=== PATIENT | female | born 1990 | race Caucasian/White ===

== ENCOUNTER 2016-09-16 17:49 | Emergency (ER) | payer MEDICAID ==
[~2016-09-16] VITALS: Ht 160 cm; Wt 76.5 kg
[2016-09-16 17:53] VITALS: BP 123/82
[2016-09-16 18:56] LABS: ASPARTATE AMINO TRANSFERASE 24 U/L (15-37); BLOOD UREA NITROGEN 8 mg/dL (7-18)
[2016-09-16] MEDS ORDERED: METR500T PO (19:20)
[2016-09-16] MEDS ORDERED: SERT100T PO (19:20)
[2016-09-16] MEDS ORDERED: LEVO50TA PO (19:20)
[2016-09-16] MEDS ORDERED: LORA-445 PO (19:20)
== END 2016-09-16 21:47 | disposition home or self-care (01) ==
LOC: ED 21:00
DX: N83.02 Follicular cyst of left ovary (principal); N92.0 Excessive and frequent menstruation with regular cycle
CPT/HCPCS: 36415; 76830; 80053; 81001; 83690; 84703; 85025; 99285

== ENCOUNTER 2017-06-07 19:50 | Emergency (ER) | payer MEDICAID ==
[~2017-06-07] VITALS: Ht 160 cm; Wt 66.4 kg
[~2017-06-07 19:50] MED LIST: LEVO50TA PO; LORA-445 PO; METR500T PO; SERT100T PO
[2017-06-07 19:52] VITALS: BP 99/64
== END 2017-06-07 21:58 | disposition home or self-care (01) ==
LOC: ED 20:15
DX: N61.0 Mastitis without abscess (principal); Z90.49 Acquired absence of other specified parts of digestive tract
CPT/HCPCS: 76642; 99284

== ENCOUNTER 2018-08-20 17:39 | Emergency (ER) | payer MEDICAID ==
[~2018-08-20] VITALS: Ht 160 cm; Wt 71.4 kg
[2018-08-20 18:16] LABS: MEAN CORPUSCULAR HEMOGLOBIN 29.4 pg (27.0-34.8); MEAN CORPUSCULAR HGB CONC 33.7 g/dL (32.4-35.8); MEAN CORPUSCULAR VOLUME 87.3 fL (80-100); PLATELET COUNT 333 x10^3/uL (130-400); RED CELL DISTRIBUTION WIDTH 13.8 % (9.6-15.2)
[2018-08-20 18:27] LABS: ALBUMIN 4.3 g/dL (3.4-5.0); ANION GAP 7 mmol/L (5-15); CHLORIDE 104 mmol/L (98-107)
[2018-08-20 18:28] LABS: CREATININE 0.61 mg/dL (0.55-1.02)
[2018-08-20] MEDS ORDERED: CEFTRIAXONE PMX 2GM/50ML 50 ML IV ONE (18:30)
[2018-08-20] MEDS ORDERED: SODIUM CHLORIDE FLUSH 10ML SYR IVF ONE (18:30)
[2018-08-20] MEDS ORDERED: SODIUM CHLORIDE 0.9% 1,000ML IVBOLUS ONE (18:30)
[2018-08-20] MEDS ORDERED: ACETAMINOPHEN 325 MG TABLET PO ONE (18:30)
[2018-08-20 18:41] LABS: CULTURE INDICATED? YES; HCG UR SG 1.009 (1.003-1.030); MICROSCOPIC INDICATED
[2018-08-20] MEDS ORDERED: IBUPROFEN 600 MG TABLET ONE (18:49)
[2018-08-20] MEDS ORDERED: CEFTRIAXONE PMX 2GM/50ML 50 ML ONE (18:49)
[2018-08-20] MEDS ORDERED: IBUPROFEN 200 MG TABLET PO ONE (19:00)
[2018-08-20] MEDS ORDERED: IBUPROFEN 600 MG TABLET PO ONE (19:00)
--- NOTE | 2018-08-20 19:10 | NUR ---
Pt presents for 4 days of painful urination, increased frequency. R flank pain today. Fever. VSS.
[2018-08-20 19:20] LABS: BASOPHILS # (AUTO) 0.01 x10^3/uL (0-0.1); BASOPHILS % (AUTO) 0 % (0-1); EOSINOPHILS # (AUTO) 0.02 x10^3/uL (0-0.4); EOSINOPHILS % (AUTO) 0 % (1-7); LYMPHOCYTES # (AUTO) 1.04 x10^3/uL (1-3.4); LYMPHOCYTES % (AUTO) 5 % (22-44); MD SCAN; MONOCYTES # (AUTO) 0.62 x10^3/uL (0.2-0.8); MONOCYTES % (AUTO) 3 % (2-9); NEUTROPHILS # (AUTO) 17.67 x10^3/uL (1.8-6.8); NEUTROPHILS % (AUTO) 91 % (42-75)
[2018-08-20 19:54] VITALS: BP 115/65
[2018-08-21] MEDS ORDERED: ACYC-113 PO (22:14)
== END 2018-08-20 20:16 | disposition home or self-care (01) ==
LOC: ED 19:55
DX: N10 Acute pyelonephritis (principal); E03.9 Hypothyroidism, unspecified
CPT/HCPCS: 36415; 80048; 81001; 81025; 82040; 85025; 87077; 87086; 87147; 87186; 96365; 99283; J0696; J7030

== ENCOUNTER 2018-08-21 19:30 | Inpatient (IN) | payer MEDICAID ==
[~2018-08-21] VITALS: Ht 160 cm; Wt 78.8 kg
--- NOTE | 2018-08-21 20:21 | NUR ---
FIRST CONTACT WITH PT. PT STATES THAT SHE WAS SEEN HERE YESTERDAY FOR KIDNEY INFECTION. PT STATES THAT SHE IS HAVING EXCRUCIATING PAIN THAT RADIATES TO HER ABDOMEN NOW. PT BEEN COMPLIANT WITH PRESCRIBED MEDS SINCE D/C. PT'S AOX4. RESPS EVEN AND UNLABORED. BP/SPO2 MONITORS IN PLACE. CALL LIGHT WITHIN REACH. AWAITING EDMD ASSESSMENT AT THIS TIME.
--- NOTE | 2018-08-21 20:46 | NUR ---
PT AMB TO BR AND BACK TO ROOM WITH STEADY GAIT.
[2018-08-21] MEDS ORDERED: SODIUM CHLORIDE FLUSH 10ML SYR IVF ONE (21:00)
[2018-08-21] MEDS ORDERED: ONDANSETRON 2MG/ML, 2ML IVPush ONE (21:00)
[2018-08-21] MEDS ORDERED: MORPHINE SULFATE 4 MG/ML, 1ML ONE ×2 (21:02→22:19)
[2018-08-21] MEDS ORDERED: ONDANSETRON 2MG/ML, 2ML ONE (21:02)
--- NOTE | 2018-08-21 21:05 | NUR ---
UA SENT. PT IN CT NOW.
--- NOTE | 2018-08-21 21:09 | NUR ---
PT BACK TO ROOM FROM CT NOW.
[2018-08-21 21:11] LABS: MICROSCOPIC INDICATED
[2018-08-21] MEDS: MORPHINE SULFATE 4 MG/ML, 1ML IVPush PRN ×2 (21:21→22:21)
[2018-08-21 21:25] LABS: CULTURE INDICATED? NO
--- NOTE | 2018-08-21 21:25 | NUR ---
PT MEDICATED PER EMAR. PT TOLERTAED WELL.
[2018-08-21 21:39] LABS: MEAN CORPUSCULAR HEMOGLOBIN 30.2 pg (27.0-34.8); MEAN CORPUSCULAR HGB CONC 34.6 g/dL (32.4-35.8); MEAN CORPUSCULAR VOLUME 87.3 fL (80-100); MEAN PLATELET VOLUME 8.5 fL (7.4-10.4); PLATELET COUNT 306 x10^3/uL (130-400)
[2018-08-21 21:48] LABS: ALANINE AMINOTRANSFERASE 35 U/L (12-78); ALBUMIN 3.3 g/dL (3.4-5.0); ANION GAP 8 mmol/L (5-15); CALCIUM 8.7 mg/dL (8.5-10.1); CHLORIDE 108 mmol/L (98-107); CREATININE 0.68 mg/dL (0.55-1.02)
[2018-08-21 21:51] LABS: ALKALINE PHOSPHATASE 94 U/L (45-117)
--- NOTE | 2018-08-21 21:57 | NUR ---
PT IN US NOW.
[2018-08-21 22:04] LABS: BASOPHILS # (AUTO) 0.03 x10^3/uL (0-0.1); BASOPHILS % (AUTO) 0 % (0-1); EOSINOPHILS # (AUTO) 0.01 x10^3/uL (0-0.4); EOSINOPHILS % (AUTO) 0 % (1-7); LYMPHOCYTES # (AUTO) 1.78 x10^3/uL (1-3.4); LYMPHOCYTES % (AUTO) 6 % (22-44); MD SCAN; MONOCYTES # (AUTO) 1.29 x10^3/uL (0.2-0.8); MONOCYTES % (AUTO) 5 % (2-9); NEUTROPHILS # (AUTO) 25.02 x10^3/uL (1.8-6.8); NEUTROPHILS % (AUTO) 89 % (42-75)
[2018-08-21] MEDS ORDERED: ACYC-113 PO (22:14)
[2018-08-21] MEDS ORDERED: CEFTRIAXONE PMX 1GM/50ML 50 ML ONE (22:18)
--- NOTE | 2018-08-21 22:20 | NUR ---
PT BACK TO ROOM FROM US.
--- NOTE | 2018-08-21 22:29 | NUR ---
PT MEDICATED PER EMAR. PT TOLERATED WELL. PT'S AOX4. RESPS EVEN AND UNLABORED.
[2018-08-21] MEDS ORDERED: CEFTRIAXONE PMX 1GM/50ML 50 ML IVPB ONE (22:30)
[2018-08-21] MEDS ORDERED: SODIUM CHLORIDE 0.9% 1,000ML IVBOLUS ONE (22:30)
--- NOTE | 2018-08-21 22:36 | NUR ---
REPORT GIVEN TO HERACLIO LESTER. ALL QUESTIONS ANSWERED.
[2018-08-21] MEDS: NS + 20MEQ KCL 1,000 ML IV SCH (22:47)
--- NOTE | 2018-08-21 22:51 | NUR ---
PT'S PAIN LEVEL REDUCED TO 5/10 AT THIS TIME.
[2018-08-21] MEDS ORDERED: ENALAPRILAT 1.25 MG/ML, 2ML IVPush PRN (23:00)
[2018-08-21] MEDS ORDERED: POTASSIUM CHLORIDE 20 MEQ TAB.ER.PRT PO ONE (23:00)
[2018-08-21] MEDS ORDERED: ENOXAPARIN 40 MG/0.4 ML SQ SCH (23:00)
[2018-08-21] MEDS ORDERED: morphine SULFATE 10 MG/ML, 1ML IVPush PRN (23:00)
[2018-08-21] MEDS: HYDROcodone/APAP 5/325 TABLET PO PRN (23:28)
[2018-08-21 23:33] VITALS: BP 114/73
[2018-08-22] MEDS ORDERED: ONDANSETRON 2MG/ML, 2ML IVPush ONE (00:30)
[2018-08-22 03:20] VITALS: BP 102/67
[2018-08-22] MEDS: HYDROcodone/APAP 5/325 TABLET PO PRN ×2 (03:48→08:12)
[2018-08-22] MEDS: ONDANSETRON 2MG/ML, 2ML IVPush PRN ×3 (03:48→21:23)
[2018-08-22] MEDS: NS + 20MEQ KCL 1,000 ML IV SCH ×3 (05:17→23:29)
[2018-08-22] MEDS: LEVOTHYROXINE 50 MCG TABLET PO SCH (05:19)
[2018-08-22 05:36] LABS: MEAN CORPUSCULAR HEMOGLOBIN 29.8 pg (27.0-34.8); MEAN CORPUSCULAR HGB CONC 33.9 g/dL (32.4-35.8); MEAN PLATELET VOLUME 8.6 fL (7.4-10.4); PLATELET COUNT 279 x10^3/uL (130-400); RED BLOOD COUNT 3.92 x10^6/uL (3.82-5.3); RED CELL DISTRIBUTION WIDTH 14.1 % (9.6-15.2)
[2018-08-22 05:43] LABS: ANION GAP 5 mmol/L (5-15); CALCIUM 8.4 mg/dL (8.5-10.1); CHLORIDE 112 mmol/L (98-107); CREATININE 0.58 mg/dL (0.55-1.02)
[2018-08-22 05:52] LABS: RAPID INFLUENZA A Negative (Negative); RAPID INFLUENZA B Negative (Negative)
[2018-08-22 05:53] LABS: THYROID STIMULATING HORMONE 0.871 mIU/L (0.358-3.740)
[2018-08-22 06:13] LABS: HEMOGLOBIN A1C 5.5 % (4.2-6.3)
[2018-08-22 07:24] LABS: MD YES
[2018-08-22 07:26] LABS: BAND#(MANUAL) 3.44 x10^3/uL; BANDS%(MANUAL) 15 % (0-7); LYMPH#(MANUAL) 0.92 x10^3/uL (1-3.4); LYMPHS% (MANUAL) 4 % (22-44); MONOS#(MANUAL) 0.46 x10^3/uL (0.3-2.7); MONOS% (MANUAL) 2 % (2-9); SEG#(MANUAL) 18.09 x10^3/uL (1.8-6.8); SEGS% (MANUAL) 79 % (42-75)
[2018-08-22 07:28] LABS: <PLATELET ESTIMATE> ADEQUATE; <PLT MORPHOLOGY> NORMAL PLT MORPH; <RBC MORPHOLOGY> NORMAL
[2018-08-22] MEDS: SENNA/DOCUSATE TABLET PO SCH (08:12)
[2018-08-22] MEDS: METOCLOPRAMIDE 5 MG/ML, 2ML IVPush PRN ×2 (08:19→17:24)
[2018-08-22 08:26] VITALS: BP 112/73
[2018-08-22] MEDS: PIPERACILLIN/TAZO/PMX 3.375GM 50 ML IV SCH ×3 (11:38→23:29)
[2018-08-22] MEDS ORDERED: ACETAMINOPHEN 325 MG TABLET PO PRN (13:00)
[2018-08-22] MEDS: KETOROLAC 30 MG/1 ML IVPush PRN ×2 (13:01→21:23)
[2018-08-22 14:46] VITALS: BP 116/76
[2018-08-22] MEDS ORDERED: HYDROcodone/APAP 5/325 TABLET PO PRN (15:00)
[2018-08-22 20:25] VITALS: BP 117/76
[2018-08-22] MEDS ORDERED: CEFTRIAXONE PMX 1GM/50ML 50 ML IV SCH (22:00)
[2018-08-23 01:00] VITALS: BP 131/80
[2018-08-23] MEDS: METOCLOPRAMIDE 5 MG/ML, 2ML IVPush PRN ×2 (01:14→21:13)
[2018-08-23 05:10] LABS: BASOPHILS # (AUTO) 0.07 x10^3/uL (0-0.1); BASOPHILS % (AUTO) 1 % (0-1); EOSINOPHILS # (AUTO) 0.03 x10^3/uL (0-0.4); EOSINOPHILS % (AUTO) 0 % (1-7); LYMPHOCYTES # (AUTO) 1.43 x10^3/uL (1-3.4); LYMPHOCYTES % (AUTO) 11 % (22-44); MD NO; MEAN CORPUSCULAR VOLUME 88.1 fL (80-100); MEAN PLATELET VOLUME 8.4 fL (7.4-10.4); MONOCYTES # (AUTO) 0.72 x10^3/uL (0.2-0.8); MONOCYTES % (AUTO) 5 % (2-9); NEUTROPHILS # (AUTO) 10.96 x10^3/uL (1.8-6.8); NEUTROPHILS % (AUTO) 83 % (42-75); PLATELET COUNT 251 x10^3/uL (130-400); RED CELL DISTRIBUTION WIDTH 13.8 % (9.6-15.2)
[2018-08-23 05:17] LABS: ANION GAP 6 mmol/L (5-15); CALCIUM 8.2 mg/dL (8.5-10.1); CHLORIDE 112 mmol/L (98-107); CREATININE 0.54 mg/dL (0.55-1.02)
[2018-08-23] MEDS: PIPERACILLIN/TAZO/PMX 3.375GM 50 ML IV SCH ×4 (05:22→21:03)
[2018-08-23] MEDS: LEVOTHYROXINE 50 MCG TABLET PO SCH (05:22)
[2018-08-23] MEDS: KETOROLAC 30 MG/1 ML IVPush PRN ×3 (05:22→21:13)
[2018-08-23] MEDS: ONDANSETRON 2MG/ML, 2ML IVPush PRN (05:25)
[2018-08-23 08:19] VITALS: BP 114/77
[2018-08-23] MEDS: SENNA/DOCUSATE TABLET PO SCH (09:31)
[2018-08-23 14:17] VITALS: BP 119/80
[2018-08-23] MEDS: NAPROXEN 500 MG TABLET PO PRN (15:29)
[2018-08-23 19:47] VITALS: BP 119/78
[2018-08-23] MEDS: NS + 20MEQ KCL 1,000 ML IV SCH (22:07)
[2018-08-24 01:52] VITALS: BP 113/76
[2018-08-24] MEDS: PIPERACILLIN/TAZO/PMX 3.375GM 50 ML IV SCH ×2 (03:18→09:14)
[2018-08-24] MEDS: LEVOTHYROXINE 50 MCG TABLET PO SCH (05:28)
[2018-08-24] MEDS ORDERED: SULFAMETH./TRIMETHOPRIM DS 800MG/160MG TABLET PO SCH (09:00)
[2018-08-24] MEDS: NAPROXEN 500 MG TABLET PO PRN (09:14)
[2018-08-24] MEDS: SENNA/DOCUSATE TABLET PO SCH (09:14)
[2018-08-24 09:22] VITALS: BP 127/85
[2018-08-24] MEDS: NS + 20MEQ KCL 1,000 ML IV SCH (12:42)
[2018-08-24 12:46] VITALS: BP 120/80
[2018-08-24] MEDS ORDERED: HYDR-3237 PO (13:09)
[2018-08-24] MEDS ORDERED: SULF-169 PO (13:09)
== END 2018-08-24 14:27 | disposition home or self-care (01) | DRG 872 ==
LOC: ED 20:02 → EDIP 22:06 → 3NE 23:00 → DCLOUNGE 08-24 14:21
PROVIDERS: ADMIT Family Medicine; ATTEND Family Medicine
DX: A41.9 Sepsis, unspecified organism (principal); N10 Acute pyelonephritis; E03.9 Hypothyroidism, unspecified; E28.2 Polycystic ovarian syndrome; J06.9 Acute upper respiratory infection, unspecified; M35.00 Sjogren syndrome, unspecified; E87.6 Hypokalemia; E86.0 Dehydration; Z90.49 Acquired absence of other specified parts of digestive tract; Z88.8 Allergy status to other drugs, medicaments and biological substances
CPT/HCPCS: 36415; 74176; 76830; 80048; 80053; 81001; 83036; 83605; 83690; 83735; 84100; 84443; 85025; 87040; 87400; 96374; 96375; 96376; 99285; G0378; J0696; J1885; J2405; J2543; J3480; J2765; J7030

== ENCOUNTER 2020-11-07 06:21 | Emergency (ER) | payer MEDICAID ==
[~2020-11-07] VITALS: Ht 160 cm; Wt 76.0 kg
[~2020-11-07 06:21] MED LIST changes: +ACYC200C13 PO; +HYDR-3237 PO; +SULF-169 PO
--- NOTE | 2020-11-07 06:40 | NUR ---
PT PRESENTS TO ED WITH C/O UTI SX X5 DAYS. STATES THEY FELT BETTER AFTER TAKING PYRYDIUM BUT LAST NIGHT NEW ONSET R FLANK PAIN. PT A&O, RESPS EVEN AND UNLABORED, NADN.
[2020-11-07 06:45] LABS: MICROSCOPIC AUTO
--- NOTE | 2020-11-07 06:57 | NUR ---
BEDSIDE REPORT TAKEN FROM ESTHELA RN, PT IN BED, MEGHAN, DOMINIQUE. LAB AT BEDSIDE.
[2020-11-07 07:16] LABS: BASOPHILS % (AUTO) 1 % (0-1); EOSINOPHILS % (AUTO) 1 % (1-7); LYMPHOCYTES % (AUTO) 16 % (22-44); MEAN CORPUSCULAR HEMOGLOBIN 28.5 pg (27.0-34.8); MEAN CORPUSCULAR HGB CONC 33.4 g/dL (32.4-35.8); MEAN PLATELET VOLUME 8.7 fL (7.4-10.4); MONOCYTES % (AUTO) 8 % (2-9); NEUTROPHILS % (AUTO) 75 % (42-75); PLATELET COUNT 328 x10^3/uL (130-400); RED BLOOD COUNT 4.89 x10^6/uL (3.82-5.3); RED CELL DISTRIBUTION WIDTH 13.5 % (9.6-15.2)
[2020-11-07 07:19] LABS: ALBUMIN 3.8 g/dL (3.4-5.0); ANION GAP 7 mmol/L (5-15); CHLORIDE 108 mmol/L (98-107); CREATININE 0.62 mg/dL (0.55-1.02)
[2020-11-07 07:27] VITALS: BP 114/72
--- NOTE | 2020-11-07 07:28 | NUR ---
pt ambulatory to bathroom with steady gait. awaiting lab results and dispo.
[2020-11-07] MEDS ORDERED: SULFAMETH./TRIMETHOPRIM DS 800MG/160MG TABLET ONE (07:47)
--- NOTE | 2020-11-07 08:09 | NUR ---
DC instructions reviewed
[2020-11-07] MEDS ORDERED: SULFAMETH./TRIMETHOPRIM DS 800MG/160MG TABLET PO ONE (08:30)
== END 2020-11-07 08:14 | disposition home or self-care (01) ==
LOC: ED 07:46
DX: N30.01 Acute cystitis with hematuria (principal); E03.9 Hypothyroidism, unspecified; Z90.89 Acquired absence of other organs
CPT/HCPCS: 36415; 80048; 81001; 81025; 82040; 85025; 87077; 87086; 87186; 99283

== ENCOUNTER → 2020-11-14 | Outpatient (CLI) | payer MEDICAID | END | disposition home or self-care (01) | LOC: RAD 16:44 | PROVIDERS: ATTEND Nurse Practitioner Family | DX: N28.89 Other specified disorders of kidney and ureter (principal); N23 Unspecified renal colic; N28.1 Cyst of kidney, acquired | CPT/HCPCS: 76770 ==

== ENCOUNTER 2020-11-23 15:21 | Emergency (ER) | payer MEDICAID ==
[~2020-11-23] VITALS: Ht 160 cm; Wt 75.1 kg
--- NOTE | 2020-11-23 15:54 | NUR ---
PT AMBULATES FROM LOBBY TO ROOM WITH STEADY GAIT.
--- NOTE | 2020-11-23 16:19 | NUR ---
SHAWNA HDZ AT FOR PT HISTORY AND ASSESSMENT. URINE COLLECTED AND TUBED TO LAB AT THIS TIME. VSS AND UPDATED IN EMR.
[2020-11-23] MEDS ORDERED: SODIUM CHLORIDE FLUSH 10ML SYR IVF ONE (16:30)
[2020-11-23] MEDS ORDERED: ONDANSETRON 2MG/ML, 2ML IVPush ONE (16:30)
[2020-11-23] MEDS ORDERED: MORPHINE SULFATE 4 MG/ML, 1ML IVPush PRN (16:30)
[2020-11-23] MEDS ORDERED: SODIUM CHLORIDE 0.9% 1,000ML IV ONE (16:30)
[2020-11-23 16:39] LABS: MICROSCOPIC AUTO
[2020-11-23] MEDS ORDERED: ONDANSETRON 2MG/ML, 2ML ONE (16:39)
[2020-11-23] MEDS ORDERED: MORPHINE SULFATE 4 MG/ML, 1ML ONE (16:39)
[2020-11-23 16:40] LABS: BASOPHILS % (AUTO) 0 % (0-1); EOSINOPHILS % (AUTO) 0 % (1-7); LYMPHOCYTES % (AUTO) 7 % (22-44); MEAN CORPUSCULAR HGB CONC 34.1 g/dL (32.4-35.8); MEAN PLATELET VOLUME 8.1 fL (7.4-10.4); MONOCYTES % (AUTO) 7 % (2-9); NEUTROPHILS % (AUTO) 86 % (42-75); PLATELET COUNT 346 x10^3/uL (130-400); RED BLOOD COUNT 4.66 x10^6/uL (3.82-5.3); RED CELL DISTRIBUTION WIDTH 13.2 % (9.6-15.2)
--- NOTE | 2020-11-23 16:43 | NUR ---
PT MEDICATED PER MAR
[2020-11-23 16:50] LABS: ALANINE AMINOTRANSFERASE 19 U/L (12-78); ALBUMIN 3.7 g/dL (3.4-5.0); ANION GAP 6 mmol/L (5-15); CALCIUM 9.1 mg/dL (8.5-10.1); CHLORIDE 105 mmol/L (98-107); CREATININE 0.69 mg/dL (0.55-1.02)
[2020-11-23 16:54] LABS: ALKALINE PHOSPHATASE 64 U/L (45-117); BILIRUBIN,TOTAL 0.8 mg/dL (0.2-1.0); TOTAL PROTEIN 7.7 g/dL (6.4-8.2)
--- NOTE | 2020-11-23 17:33 | NUR ---
PT TO CT VIA LONNIE
--- NOTE | 2020-11-23 17:37 | NUR ---
PT BACK FROM CT AT THIS TIME.
[2020-11-23] MEDS ORDERED: OMNIPAQUE 350 MG/ML, 100ML BOTTLE ONE (17:42)
--- NOTE | 2020-11-23 17:54 | NUR ---
PT VSS AND UPDATED IN EMR.
[2020-11-23 21:09] VITALS: BP 127/72
--- NOTE | 2020-11-23 21:15 | NUR ---
REPORT OF PT TO TAYLER ALMONTE. ALL QUESTIONS ANSWERED
[2020-11-23] MEDS ORDERED: HYDROcodone/APAP 5/325 TABLET PO ONE (22:00)
[2020-11-23] MEDS ORDERED: HYDROcodone/APAP 5/325 TABLET ONE (22:06)
== END 2020-11-23 22:23 | disposition home or self-care (01) ==
LOC: ED 21:30
DX: N28.1 Cyst of kidney, acquired (principal); Z90.89 Acquired absence of other organs
CPT/HCPCS: 36415; 74170; 80053; 81001; 84703; 85025; 96361; 96374; 96375; 99285; J2270; J2405; J7030; Q9967

== ENCOUNTER 2020-11-24 10:16 | Emergency (ER) | payer MEDICAID ==
[~2020-11-24] VITALS: Ht 160 cm; Wt 76.2 kg
--- NOTE | 2020-11-24 10:43 | NUR ---
PT here last night for right kidney pain, here this am for chills, hyperventilating, coughing, feeling unwell starting at 8 am, with consistent kidney pain.
--- NOTE | 2020-11-24 10:47 | NUR ---
took activated charcol last night d/t feeling sick after vicodin
[2020-11-24] MEDS ORDERED: ACETAMINOPHEN 500 MG TABLET PO ONE (11:00)
[2020-11-24] MEDS ORDERED: SODIUM CHLORIDE 0.9% 1,000ML IVBOLUS ONE (11:00)
[2020-11-24] MEDS ORDERED: SODIUM CHLORIDE FLUSH 10ML SYR IVF ONE (11:00)
--- NOTE | 2020-11-24 11:04 | NUR ---
LAURA SAVAGE AT BEDSIDE FOR EVAL
[2020-11-24] MEDS ORDERED: ACETAMINOPHEN 500 MG TABLET ONE (11:17)
[2020-11-24 11:52] LABS: BASOPHILS % (AUTO) 0 % (0-1); EOSINOPHILS % (AUTO) 0 % (1-7); LYMPHOCYTES % (AUTO) 4 % (22-44); MEAN CORPUSCULAR HEMOGLOBIN 28.6 pg (27.0-34.8); MEAN CORPUSCULAR HGB CONC 33.8 g/dL (32.4-35.8); MEAN PLATELET VOLUME 8.1 fL (7.4-10.4); MONOCYTES % (AUTO) 2 % (2-9); NEUTROPHILS % (AUTO) 94 % (42-75); PLATELET COUNT 285 x10^3/uL (130-400); RED BLOOD COUNT 4.56 x10^6/uL (3.82-5.3)
[2020-11-24 12:03] LABS: ALBUMIN 3.6 g/dL (3.4-5.0); ANION GAP 7 mmol/L (5-15); CALCIUM 8.7 mg/dL (8.5-10.1); CHLORIDE 103 mmol/L (98-107)
[2020-11-24 12:13] LABS: ALANINE AMINOTRANSFERASE 21 U/L (12-78); ALKALINE PHOSPHATASE 57 U/L (45-117); CREATININE 0.62 mg/dL (0.55-1.02); TOTAL PROTEIN 7.2 g/dL (6.4-8.2)
[2020-11-24] MEDS ORDERED: POTASSIUM CHLORIDE 20 MEQ TAB.ER.PRT ONE (12:23)
[2020-11-24] MEDS ORDERED: MAGNESIUM SULFATE/D5W 100 ML ONE (12:23)
[2020-11-24 12:27] LABS: MICROSCOPIC AUTO
[2020-11-24] MEDS ORDERED: POTASSIUM CHLORIDE 20 MEQ TAB.ER.PRT PO ONE (12:30)
[2020-11-24] MEDS ORDERED: MAGNESIUM SULFATE/D5W 100 ML IVPB ONE (12:30)
--- NOTE | 2020-11-24 12:42 | NUR ---
rachana ayers at bedside to discuss poc
[2020-11-24] MEDS ORDERED: KETOROLAC 30 MG/1 ML IVPush ONE (13:00)
[2020-11-24] MEDS ORDERED: CEFTRIAXONE 1,000 MG in DEXTROSE 5% 50 ML IVPB ONE (13:00)
--- NOTE | 2020-11-24 13:48 | NUR ---
pt resting in bed, poc discussed
[2020-11-24 13:49] VITALS: BP 101/57
--- NOTE | 2020-11-24 14:26 | NUR ---
DC INSTRUCTIONS REVIEWED
[2020-11-28 17:00] LABS: ANA SCREEN NEGATIVE (Negative)
== END 2020-11-24 14:28 | disposition home or self-care (01) ==
LOC: ED 12:19
DX: N10 Acute pyelonephritis (principal); R50.9 Fever, unspecified; R00.0 Tachycardia, unspecified; E03.9 Hypothyroidism, unspecified; Z90.89 Acquired absence of other organs; Z88.1 Allergy status to other antibiotic agents
CPT/HCPCS: 36415; 71045; 80053; 81001; 83605; 83735; 84145; 84443; 84481; 85025; 86038; 86140; 87040; 87077; 87086; 87186; 93005; 96361; 96365; 96368; 99285; J0696; J7030

== ENCOUNTER 2020-11-29 15:02 | Inpatient (IN) | payer MEDICAID ==
[~2020-11-29] VITALS: Ht 160 cm; Wt 81.6 kg
[2020-11-29 16:39] LABS: BASOPHILS % (AUTO) 1 % (0-1); EOSINOPHILS % (AUTO) 0 % (1-7); LYMPHOCYTES % (AUTO) 12 % (22-44); MEAN CORPUSCULAR HEMOGLOBIN 28.1 pg (27.0-34.8); MEAN CORPUSCULAR HGB CONC 33.2 g/dL (32.4-35.8); MONOCYTES % (AUTO) 11 % (2-9); NEUTROPHILS % (AUTO) 77 % (42-75); PLATELET COUNT 371 x10^3/uL (130-400); RED BLOOD COUNT 4.67 x10^6/uL (3.82-5.3); RED CELL DISTRIBUTION WIDTH 13.4 % (9.6-15.2)
[2020-11-29 16:49] LABS: ALANINE AMINOTRANSFERASE 36 U/L (12-78); ALBUMIN 3.5 g/dL (3.4-5.0); ANION GAP 9 mmol/L (5-15); CALCIUM 9.2 mg/dL (8.5-10.1); CHLORIDE 101 mmol/L (98-107); CREATININE 0.54 mg/dL (0.55-1.02)
[2020-11-29 16:53] LABS: ALKALINE PHOSPHATASE 96 U/L (45-117); BILIRUBIN,TOTAL 0.9 mg/dL (0.2-1.0); TOTAL PROTEIN 8.3 g/dL (6.4-8.2)
--- NOTE | 2020-11-29 17:01 | NUR ---
PT URINE COLLECTED, SENT TO LAB. PT AWAITING ALL RESULTS, NO DISTRESS. CONT TO MONITOR.
[2020-11-29 17:56] LABS: MICROSCOPIC INDICATED
--- NOTE | 2020-11-29 18:45 | NUR ---
PT RESTING IN BED, FAMILY AT BEDSIDE. PT REMAINS ON MONITORS, VSS. NO DISTRESS, CONT TO MONITOR.
[2020-11-29] MEDS ORDERED: SODIUM CHLORIDE 0.9% 1,000ML IVBOLUS ONE ×2 (19:00→20:00)
--- NOTE | 2020-11-29 19:50 | NUR ---
PT AWARE OF POC, TO BE [facility] ADMIT. PT REMAINS ON MONITORS, VSS. PT MEDICATED PER ORDERS. CONT TO MONITOR.
[2020-11-29] MEDS ORDERED: CEFTRIAXONE 1,000 MG in DEXTROSE 5% 50 ML IVPB ONE (20:00)
--- NOTE | 2020-11-29 20:58 | NUR ---
REPORT TO OVI LESTER, PT OK TO TRANSFER TO FLOOR.
[2020-11-29 21:22] VITALS: BP 103/71
[2020-11-29] MEDS ORDERED: morphine SULFATE 10 MG/ML, 1ML IVPush PRN (22:30)
[2020-11-29] MEDS ORDERED: MELATONIN 5 MG TABLET PO PRN (22:30)
[2020-11-29] MEDS ORDERED: ACETAMINOPHEN 325 MG TABLET PO PRN (22:30)
[2020-11-29] MEDS ORDERED: LABETALOL 5MG/ML, 20ML IVPush PRN (22:30)
[2020-11-30 01:47] VITALS: BP 96/62
[2020-11-30] MEDS: LEVOTHYROXINE 50 MCG TABLET PO SCH (05:55)
[2020-11-30] MEDS: CEFTRIAXONE 1,000 MG in DEXTROSE 5% 50 ML IVPB SCH ×2 (05:55→17:25)
[2020-11-30 06:00] LABS: BASOPHILS % (AUTO) 0 % (0-1); EOSINOPHILS % (AUTO) 1 % (1-7); LYMPHOCYTES % (AUTO) 26 % (22-44); MEAN CORPUSCULAR HEMOGLOBIN 28.3 pg (27.0-34.8); MEAN CORPUSCULAR HGB CONC 33.5 g/dL (32.4-35.8); MEAN PLATELET VOLUME 7.9 fL (7.4-10.4); MONOCYTES % (AUTO) 10 % (2-9); NEUTROPHILS % (AUTO) 63 % (42-75); PLATELET COUNT 334 x10^3/uL (130-400); RED BLOOD COUNT 4.15 x10^6/uL (3.82-5.3); RED CELL DISTRIBUTION WIDTH 13.5 % (9.6-15.2)
[2020-11-30 06:11] LABS: ANION GAP 5 mmol/L (5-15); CALCIUM 8.7 mg/dL (8.5-10.1); CHLORIDE 107 mmol/L (98-107); CREATININE 0.41 mg/dL (0.55-1.02)
[2020-11-30 08:09] VITALS: BP 96/65
[2020-11-30] MEDS: SENNA/DOCUSATE TABLET PO SCH (08:16)
[2020-11-30] MEDS ORDERED: OMNIPAQUE 350 MG/ML, 150 ML BOTTLE ONE (08:55)
[2020-11-30 12:01] VITALS: BP 96/65
[2020-11-30] MEDS: KETOROLAC 30 MG/1 ML IV PRN (17:43)
[2020-11-30 19:37] VITALS: BP 104/66
[2020-11-30] MEDS: CALCIUM CARBONATE 500 MG TAB.CHEW PO PRN (23:39)
[2020-12-01 00:47] VITALS: BP 102/69
[2020-12-01] MEDS: CEFTRIAXONE 1,000 MG in DEXTROSE 5% 50 ML IVPB SCH ×2 (05:53→17:09)
[2020-12-01] MEDS: LEVOTHYROXINE 50 MCG TABLET PO SCH (05:53)
[2020-12-01 06:07] LABS: BASOPHILS % (AUTO) 0 % (0-1); EOSINOPHILS % (AUTO) 3 % (1-7); LYMPHOCYTES % (AUTO) 28 % (22-44); MEAN CORPUSCULAR HEMOGLOBIN 28.5 pg (27.0-34.8); MEAN CORPUSCULAR HGB CONC 33.8 g/dL (32.4-35.8); MEAN PLATELET VOLUME 8.1 fL (7.4-10.4); MONOCYTES % (AUTO) 8 % (2-9); NEUTROPHILS % (AUTO) 62 % (42-75); PLATELET COUNT 364 x10^3/uL (130-400); RED CELL DISTRIBUTION WIDTH 13.5 % (9.6-15.2)
[2020-12-01 06:23] LABS: CHLORIDE 106 mmol/L (98-107)
[2020-12-01 06:37] LABS: ALANINE AMINOTRANSFERASE 26 U/L (12-78); ALKALINE PHOSPHATASE 76 U/L (45-117); ANION GAP 8 mmol/L (5-15); BILIRUBIN,TOTAL 0.6 mg/dL (0.2-1.0); CALCIUM 9.1 mg/dL (8.5-10.1); CREATININE 0.48 mg/dL (0.55-1.02); TOTAL PROTEIN 7.2 g/dL (6.4-8.2)
[2020-12-01 06:50] VITALS: BP 92/56
[2020-12-01] MEDS: SENNA/DOCUSATE TABLET PO SCH (07:53)
[2020-12-01 13:49] VITALS: BP 110/72
[2020-12-01] MEDS: KETOROLAC 30 MG/1 ML IV PRN (19:25)
[2020-12-01 19:59] VITALS: BP 99/69
[2020-12-02 00:33] VITALS: BP 105/68
[2020-12-02] MEDS: LEVOTHYROXINE 50 MCG TABLET PO SCH (06:08)
[2020-12-02] MEDS: CEFTRIAXONE 1,000 MG in DEXTROSE 5% 50 ML IVPB SCH ×2 (06:08→17:07)
[2020-12-02 06:55] VITALS: BP 94/50
[2020-12-02] MEDS: SENNA/DOCUSATE TABLET PO SCH (08:12)
[2020-12-02 13:28] VITALS: BP 95/58
[2020-12-02 21:40] VITALS: BP 105/70
[2020-12-03 01:03] VITALS: BP 107/72
[2020-12-03] MEDS: CEFTRIAXONE 1,000 MG in DEXTROSE 5% 50 ML IVPB SCH (05:58)
[2020-12-03] MEDS: LEVOTHYROXINE 50 MCG TABLET PO SCH (05:58)
[2020-12-03 07:29] VITALS: BP 94/59
[2020-12-03 08:14] VITALS: BP 103/61
[2020-12-03] MEDS: SENNA/DOCUSATE TABLET PO SCH (09:00)
[2020-12-03] MEDS ORDERED: MIDAZOLAM 1 MG/ML, 5ML ONE (10:35)
[2020-12-03] MEDS ORDERED: NALOXONE 1 MG/ML, 2ML ONE (10:35)
[2020-12-03] MEDS ORDERED: FENTANYL PF 100 MCG/2ML ONE (10:35)
[2020-12-03] MEDS ORDERED: FLUMAZENIL 0.1 MG/1 ML, 5ML ONE (10:35)
[2020-12-03] MEDS ORDERED: LIDOCAINE-MPF 1%, 5ML ONE (10:45)
[2020-12-03 12:46] VITALS: BP 112/73
[2020-12-03] MEDS: ONDANSETRON 2MG/ML, 2ML IVPush PRN ×2 (13:10→22:54)
[2020-12-03] MEDS: KETOROLAC 30 MG/1 ML IV PRN ×2 (13:10→19:06)
[2020-12-03] MEDS ORDERED: CEFTRIAXONE 1,000 MG in DEXTROSE 5% 50 ML IVPB SCH (18:00)
[2020-12-03] MEDS ORDERED: DIPHENHYDRAMINE 25 MG CAPSULE PO ONE (18:00)
[2020-12-03 18:31] VITALS: BP 117/80
[2020-12-03] MEDS: HYDROcodone/APAP 5/325 TABLET PO PRN (22:52)
[2020-12-04] MEDS: KETOROLAC 30 MG/1 ML IV PRN ×3 (00:05→19:22)
[2020-12-04 00:06] VITALS: BP 107/65
[2020-12-04] MEDS: LEVOTHYROXINE 50 MCG TABLET PO SCH (05:07)
[2020-12-04 06:25] VITALS: BP 100/62
[2020-12-04] MEDS: CEFTRIAXONE 2 GM in DEXTROSE 5% 50 ML IVPB SCH (07:31)
[2020-12-04] MEDS: SENNA/DOCUSATE TABLET PO SCH (10:20)
[2020-12-04 12:39] VITALS: BP 98/53
[2020-12-04] MEDS: HYDROcodone/APAP 5/325 TABLET PO PRN (12:39)
[2020-12-04 18:19] VITALS: BP 111/70
[2020-12-05] MEDS: IBUPROFEN 600 MG TABLET PO PRN ×2 (01:54→22:43)
[2020-12-05 01:55] VITALS: BP 106/61
[2020-12-05] MEDS: LEVOTHYROXINE 50 MCG TABLET PO SCH (05:51)
[2020-12-05 06:12] LABS: BASOPHILS % (AUTO) 1 % (0-1); EOSINOPHILS % (AUTO) 3 % (1-7); LYMPHOCYTES % (AUTO) 27 % (22-44); MEAN CORPUSCULAR HEMOGLOBIN 28.4 pg (27.0-34.8); MEAN CORPUSCULAR HGB CONC 34.1 g/dL (32.4-35.8); MEAN PLATELET VOLUME 7.4 fL (7.4-10.4); MONOCYTES % (AUTO) 9 % (2-9); NEUTROPHILS % (AUTO) 61 % (42-75); PLATELET COUNT 426 x10^3/uL (130-400); RED BLOOD COUNT 4.15 x10^6/uL (3.82-5.3); RED CELL DISTRIBUTION WIDTH 13.2 % (9.6-15.2)
[2020-12-05 06:13] LABS: HCT (SEDRATE) 34.8 % (34.6-47.8)
[2020-12-05 06:25] LABS: ALANINE AMINOTRANSFERASE 19 U/L (12-78); ANION GAP 4 mmol/L (5-15); CALCIUM 8.9 mg/dL (8.5-10.1); CHLORIDE 108 mmol/L (98-107)
[2020-12-05 06:28] VITALS: BP 121/69
[2020-12-05 06:31] LABS: ALKALINE PHOSPHATASE 70 U/L (45-117); BILIRUBIN,TOTAL 0.4 mg/dL (0.2-1.0); TOTAL PROTEIN 6.8 g/dL (6.4-8.2)
[2020-12-05] MEDS: CEFTRIAXONE 2 GM in DEXTROSE 5% 50 ML IVPB SCH (07:52)
[2020-12-05] MEDS ORDERED: DIPHENHYDRAMINE 50 MG/ML, 1ML IVPush PRN (09:00)
[2020-12-05] MEDS ORDERED: HYDROmorphone 2 MG/ML, 1ML IVPush PRN (09:00)
[2020-12-05] MEDS: SENNA/DOCUSATE TABLET PO SCH (09:31)
[2020-12-05] MEDS ORDERED: DIPHENHYDRAMINE 50 MG/ML, 1ML IVPush ONE (10:30)
[2020-12-05] MEDS: ONDANSETRON 2MG/ML, 2ML IVPush PRN (11:03)
[2020-12-05 13:52] VITALS: BP 100/65
[2020-12-05 19:05] VITALS: BP 102/66
[2020-12-05] MEDS: CALCIUM CARBONATE 500 MG TAB.CHEW PO PRN (22:43)
[2020-12-06 00:27] VITALS: BP 110/68
[2020-12-06] MEDS: LEVOTHYROXINE 50 MCG TABLET PO SCH (05:49)
[2020-12-06 06:57] VITALS: BP 96/58
[2020-12-06] MEDS: SENNA/DOCUSATE TABLET PO SCH (08:30)
[2020-12-06] MEDS: CEFTRIAXONE 2 GM in DEXTROSE 5% 50 ML IVPB SCH (08:30)
[2020-12-06] MEDS: IBUPROFEN 600 MG TABLET PO PRN (10:22)
[2020-12-06 13:16] VITALS: BP 103/67
[2020-12-06] MEDS ORDERED: ALPR0.5T PO (15:39)
[2020-12-06] MEDS ORDERED: CEFT2VIA53 IV (15:39)
[2020-12-06] MEDS ORDERED: BACL-19 PO (15:39)
[2020-12-06] MEDS ORDERED: TRAM50TA2 PO (15:39)
== END 2020-12-06 16:45 | disposition home or self-care (01) | DRG 871 ==
LOC: ED 15:32 → EDIP 19:41 → 3N 21:57 → DCLOUNGE 12-06 16:32
PROVIDERS: ADMIT Family Medicine; ATTEND Internal Medicine
PROC: 02HV33Z Insertion of Infusion Device into Superior Vena Cava, Percutaneous Approach (ICD-10-PCS; principal; 2020-12-03)
PROC: B548ZZA Ultrasonography of Superior Vena Cava, Guidance (ICD-10-PCS; 2020-12-03)
PROC: 0T903ZZ Drainage of Right Kidney, Percutaneous Approach (ICD-10-PCS; 2020-12-03)
DX: A41.9 Sepsis, unspecified organism (principal); N15.1 Renal and perinephric abscess; N12 Tubulo-interstitial nephritis, not specified as acute or chronic; E03.9 Hypothyroidism, unspecified; E28.2 Polycystic ovarian syndrome; E66.9 Obesity, unspecified; G62.9 Polyneuropathy, unspecified; K80.20 Calculus of gallbladder without cholecystitis without obstruction; M35.00 Sjogren syndrome, unspecified; N28.1 Cyst of kidney, acquired; K59.09 Other constipation; N61.0 Mastitis without abscess; Z80.51 Family history of malignant neoplasm of kidney; Z87.440 Personal history of urinary (tract) infections; Z68.32 Body mass index [BMI] 32.0-32.9, adult; Z79.899 Other long term (current) drug therapy; Z79.891 Long term (current) use of opiate analgesic; Z79.01 Long term (current) use of anticoagulants; Z88.8 Allergy status to other drugs, medicaments and biological substances; Z90.49 Acquired absence of other specified parts of digestive tract
CPT/HCPCS: 36415; 36573; 49405; 49407; 74178; 80048; 80053; 81001; 83605; 83735; 84145; 84703; 85025; 85651; 86140; 87040; 87070; 87075; 87077; 87086; 87186; 87205; 96365; 99156; 99157; G0378; J0696; J1170; J1885; J2250; J2405; J3010; Q9967; C1729; C1751; C1769; J1200; J2270; J2310; J7030; Q0163

== ENCOUNTER → 2020-12-15 | Outpatient (CLI) | payer MEDICAID, OTHER ==
[~2020-12-15] MED LIST changes: +ALPR0.5T PO; +BACL-19 PO; +CEFT2VIA53 IV; +OMNIPAQUE 350 MG/ML, 100ML BOTTLE ONE; +TRAM50TA2 PO
== END | disposition home or self-care (01) ==
LOC: CFH 09:42
PROVIDERS: ATTEND Internal Medicine Infectious Disease
DX: N20.0 Calculus of kidney (principal); K80.20 Calculus of gallbladder without cholecystitis without obstruction; N15.1 Renal and perinephric abscess; A41.9 Sepsis, unspecified organism
CPT/HCPCS: 74177; Q9967

== ENCOUNTER 2020-12-27 17:23 | Emergency (ER) | payer MEDICAID ==
[~2020-12-27] VITALS: Ht 160 cm; Wt 72.1 kg
[~2020-12-27 17:23] MED LIST changes: -OMNIPAQUE 350 MG/ML, 100ML BOTTLE ONE
[2020-12-27 18:11] LABS: BASOPHILS % (AUTO) 1 % (0-1); EOSINOPHILS % (AUTO) 2 % (1-7); LYMPHOCYTES % (AUTO) 31 % (22-44); MEAN CORPUSCULAR HEMOGLOBIN 28.3 pg (27.0-34.8); MEAN CORPUSCULAR HGB CONC 33.8 g/dL (32.4-35.8); MEAN PLATELET VOLUME 7.8 fL (7.4-10.4); MONOCYTES % (AUTO) 7 % (2-9); NEUTROPHILS % (AUTO) 59 % (42-75); PLATELET COUNT 341 x10^3/uL (130-400); RED BLOOD COUNT 4.96 x10^6/uL (3.82-5.3); RED CELL DISTRIBUTION WIDTH 14.1 % (9.6-15.2)
[2020-12-27 18:22] LABS: ALANINE AMINOTRANSFERASE 26 U/L (12-78); ANION GAP 6 mmol/L (5-15); CALCIUM 8.6 mg/dL (8.5-10.1); CHLORIDE 107 mmol/L (98-107); CREATININE 0.54 mg/dL (0.55-1.02)
[2020-12-27 18:27] LABS: ALKALINE PHOSPHATASE 68 U/L (45-117); BILIRUBIN,TOTAL 0.6 mg/dL (0.2-1.0)
--- NOTE | 2020-12-27 19:36 | NUR ---
pt presents to the ed with painful burning urination. pt has been fighting a kidney infection for 2 months and had just finished a dose of keflex on Friday12/25/20. pt provided ua sample, and sample sent to lab. pt in gown, resting on gurney, and placed on continuous monitoring.
[2020-12-27 19:40] VITALS: BP 131/81
[2020-12-27 20:07] LABS: MICROSCOPIC INDICATED
--- NOTE | 2020-12-27 20:52 | NUR ---
pt resting on gurney, denies needs at this time.
--- NOTE | 2020-12-27 22:21 | NUR ---
Patient given discharge instructions and they have confirmed that they understand the instructions. Patient ambulatory with steady gait.
== END 2020-12-27 22:23 | disposition home or self-care (01) ==
LOC: ED 21:09
DX: R30.0 Dysuria (principal); R10.9 Unspecified abdominal pain; E03.9 Hypothyroidism, unspecified; Z90.49 Acquired absence of other specified parts of digestive tract
CPT/HCPCS: 36415; 80053; 81001; 84703; 85025; 99283

== ENCOUNTER 2021-01-16 12:21 | Outpatient (CLI) | payer MEDICAID ==
[2021-01-16] MEDS ORDERED: OMNIPAQUE 350 MG/ML, 100ML BOTTLE ONE (14:23)
== END 2021-01-16 23:59 | disposition home or self-care (01) ==
LOC: RAD 12:21
PROVIDERS: ATTEND Urology
DX: N28.1 Cyst of kidney, acquired (principal); N39.0 Urinary tract infection, site not specified
CPT/HCPCS: 51600; 74160; 74455; Q9967

== ENCOUNTER 2021-01-22 20:33 | Emergency (ER) | payer MEDICAID ==
[~2021-01-22] VITALS: Ht 160 cm; Wt 70.9 kg
[2021-01-22 20:44] VITALS: BP 104/71
[2021-01-22] MEDS ORDERED: ACETAMINOPHEN 500 MG TABLET ONE (20:48)
--- NOTE | 2021-01-22 20:49 | NUR ---
GIVEN 1G TYLENOL PO IN TRAIGE FOR TEMP 103.
[2021-01-22] MEDS ORDERED: SODIUM CHLORIDE 0.9% 1,000ML IVBOLUS ONE (21:00)
[2021-01-22] MEDS ORDERED: SODIUM CHLORIDE FLUSH 10ML SYR IVF ONE (21:00)
[2021-01-22] MEDS ORDERED: ACETAMINOPHEN 500 MG TABLET PO ONE (21:00)
[2021-01-22 22:19] LABS: BASOPHILS % (AUTO) 0 % (0-1); EOSINOPHILS % (AUTO) 0 % (1-7); LYMPHOCYTES % (AUTO) 25 % (22-44); MEAN CORPUSCULAR HEMOGLOBIN 27.9 pg (27.0-34.8); MEAN CORPUSCULAR HGB CONC 33.4 g/dL (32.4-35.8); MEAN PLATELET VOLUME 8.4 fL (7.4-10.4); MONOCYTES % (AUTO) 8 % (2-9); NEUTROPHILS % (AUTO) 67 % (42-75); PLATELET COUNT 178 x10^3/uL (130-400); RED BLOOD COUNT 4.88 x10^6/uL (3.82-5.3)
[2021-01-22 22:26] LABS: ALBUMIN 3.3 g/dL (3.4-5.0); ANION GAP 7 mmol/L (5-15); CALCIUM 8.4 mg/dL (8.5-10.1); CHLORIDE 102 mmol/L (98-107); CREATININE 0.68 mg/dL (0.55-1.02)
[2021-01-23] MEDS ORDERED: DEXAMETHASONE 4 MG TABLET PO ONE (03:00)
[2021-01-23] MEDS ORDERED: DEXAMETHASONE 4 MG TABLET ONE (03:01)
--- NOTE | 2021-01-23 03:09 | NUR ---
Patient given discharge instructions and they have confirmed that they understand the instructions. Patient ambulatory with steady gait. NAD, all questions answered appropriately, denies additional needs at this time. No personal belongings left in room after discharge.
== END 2021-01-23 03:15 | disposition home or self-care (01) ==
LOC: ED 20:45
DX: J06.9 Acute upper respiratory infection, unspecified (principal); J15.9 Unspecified bacterial pneumonia; R50.9 Fever, unspecified; R05 Cough; R10.9 Unspecified abdominal pain; E03.9 Hypothyroidism, unspecified; Z90.89 Acquired absence of other organs
CPT/HCPCS: 36415; 71045; 80048; 82040; 84703; 85025; 96360; 99284; J7030